=== PATIENT | male | born 1955 | race Caucasian/White ===

== ENCOUNTER → 2016-08-09 | Outpatient (CLI) | payer OTHER | LOC: RAD 13:46 | PROVIDERS: ATTEND Family Medicine | DX: Z12.2 Encounter for screening for malignant neoplasm of respiratory organs (principal); F17.211 Nicotine dependence, cigarettes, in remission | CPT/HCPCS: G0297 ==

== ENCOUNTER → 2017-07-24 | Outpatient (CLI) | payer OTHER ==
--- NOTE | 2017-07-24 12:53 | RADIOLOGY REPORT (SQ) ---
EXAM DESCRIPTION: FOOT LEFT COMPLETE COMPLETED DATE/TIME: 07/24/2017 12:43 pm REASON FOR STUDY: PAIN IN LEFT FOOT M79.672 PAIN IN LEFT FOOT COMPARISON: None. NUMBER OF VIEWS: Three views. TECHNIQUE: AP, lateral and oblique radiographic images acquired of the left foot. LIMITATIONS: None. FINDINGS: MINERALIZATION: Normal. BONES: No acute fracture or dislocation. No worrisome bone lesions. Mild plantar calcaneal spurring . JOINTS: No effusions. SOFT TISSUES: No soft tissue swelling. No foreign body. OTHER: No other significant finding. IMPRESSION: MILD CALCANEAL SPURRING. NO RADIOGRAPHIC EVIDENCE OF ACUTE INJURY. TECHNICAL DOCUMENTATION: JOB ID: [id number] [employer]- All Rights Reserved
== END ==
LOC: OD 12:28
PROVIDERS: ATTEND Nurse Practitioner Acute Care
DX: M79.672 Pain in left foot (principal); M77.32 Calcaneal spur, left foot

== ENCOUNTER → 2017-08-09 | Outpatient (CLI) | payer OTHER ==
--- NOTE | 2017-08-09 15:32 | RADIOLOGY REPORT (SQ) ---
EXAM DESCRIPTION: CT LUNG CANCER SCREENING COMPLETED DATE/TIME: 08/09/2017 10:07 am REASON FOR STUDY: F17.211 NICOTINE DEPENDENCE, CIGARETTES, IN REMISSION F17.211 NICOTINE DEPENDENCE , CIGARETTES, IN REMISSION Has the patient had a Chest CT scan within the past year? Was the patient offered tobacco cessation counseling? Was the patient engaged in shared decision making for this test? Does the patient have signs or symptoms of Lung Cancer? Is the patient a smoker? How many packs per year? How many years since quitting smoking? Patients age: COMPARISON: 2017. TECHNIQUE: Low Dose CT scan performed of the chest without intravenous contrast for purposes of scre ening for lung cancer. Images reviewed with lung, soft tissue and bone windows. Reconstructed coron al and sagittal MPR images reviewed. All images stored on PACS. All CT scanners at this facility use dose modulation, iterative reconstruction, and/or weight based d osing when appropriate to reduce radiation dose to as low as reasonably achievable (ALARA). [facility]: Dose Right [facility]: CareDose [facility]: Dose Right [facility]: Teradose 4D [facility]: [employer] RADIATION DOSE: CT Rad equipment meets quality standard of care and radiation dose reduction techniq ues were employed. CTDIvol: 2.1 mGy. DLP: 81 mGy-cm. mGy. . LIMITATIONS: None FINDINGS: LUNGS AND PLEURA: No masses or nodules. No pleural effusions or calcifications. No pne umothorax. No scarring or interstitial changes. HILAR AND MEDIASTINAL STRUCTURES: No identified masses. No abnormal nodes. HEART AND VASCULAR STRUCTURES: No aortic aneurysm, mild aortic ectasia. No pericardial effusion. N o cardiac devices. CORONARY ARTERY CALCIFICATIONS: Mild to moderate calcifications. UPPER ABDOMEN, THYROID, BONES, OTHER SOFT TISSUES: No significant findings. IMPRESSION: NO SIGNIFICANT FINDING IN THE LUNGS ON NON-CONTRASTED CHEST CT. NO OTHER CLINICALLY SIGNIFICANT/POTENTIALLY CLINICALLY SIGNIFICANT FINDINGS LUNGRADS: LUNGRADS: 1 NEGATIVE. NO NODULES, OR DEFINITELY BENIGN NODULES MODIFIER: NONE RECOMMENDATION: Continue annual screening with LDCT in 12 months. COMMENT: CRITERIA: No lung nodules. Nodules with specific calcifications: Complete, central, popcorn, concentric rings and fat containin g nodules. TECHNICAL DOCUMENTATION: JOB ID: [id number] Quality ID # [id number]: Final reports with documentation of one or more dose reduction techniques (e.g., Au tomated exposure control, adjustment of the mA and/or kV according to patient size, use of iterative reconstruction technique) 2010 [employer]
== END ==
LOC: RAD 12:04
PROVIDERS: ATTEND Family Medicine
DX: Z12.2 Encounter for screening for malignant neoplasm of respiratory organs (principal); F17.211 Nicotine dependence, cigarettes, in remission
CPT/HCPCS: G0297

== ENCOUNTER → 2018-08-09 | Outpatient (CLI) | payer OTHER ==
--- NOTE | 2018-08-10 07:55 | RADIOLOGY REPORT (SQ) ---
EXAM DESCRIPTION: MRI CERVICAL SPINE WITHOUT COMPLETED DATE/TIME: 08/09/2018 9:50 pm REASON FOR STUDY: M50.00 CERVICAL DISC DISORDER WITH MYELOPATHY, UNSPECIFIED CERVICAL REGION COMPARISON: None. TECHNIQUE: Sagittal and Axial imaging includes T1, T2, STIR and gradient echo sequences. LIMITATIONS: None. FINDINGS: ALIGNMENT: Rightward rotational curvature of the cervical spine VERTEBRAE: Intact. BONE MARROW: Normal. No marrow replacement or reactive changes. DISCS: Old anterior fusion at C4-5 with fixation plate and bone graft HARDWARE: As above CORD AND BASE OF BRAIN: Normal in size and signal intensity. SOFT TISSUES: No soft tissue masses. C1-C2: No significant spinal stenosis. C2-C3: No central canal or right foraminal narrowing. Moderate left C2-3 foraminal narrowing from fa cet and uncovertebral hypertrophy. C3-C4: No central or right foraminal narrowing. High-grade left C3-4 foraminal narrowing from facet and uncovertebral hypertrophy. C4-C5: Old anterior discectomy. No central stenosis. Mild right, high-grade left foraminal narrowin g facet and uncovertebral hypertrophy. C5-C6: No central canal or right foraminal narrowing. Mild left foraminal stenosis from facet and un covertebral hypertrophy C6-C7: No central canal or right foraminal narrowing. Mild left foraminal stenosis from facet and un covertebral hypertrophy C7-T1: No central canal or right foraminal narrowing. Moderate left foraminal narrowing from facet a nd uncovertebral hypertrophy UPPER THORACIC: Incompletely imaged. No significant spinal stenosis or exit foraminal stenosis. OTHER: No other significant finding. IMPRESSION: Multilevel left-sided foraminal narrowing TECHNICAL DOCUMENTATION: JOB ID: [id number]- All Rights Reserved Reading location - IP/workstation name: [email or web address]
--- NOTE | 2018-08-10 08:21 | RADIOLOGY REPORT (SQ) ---
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 TECHNIQUE: Sagittal and Axial imaging includes T1, T2, STIR and gradient echo sequences. Coronal T2/ HASTE imaging. LIMITATIONS: None. FINDINGS: VISUALIZED UPPER ABDOMEN: Limited evaluation. No acute or suspicious findings suggested. SEGMENTATION: No transitional anatomy. The lowest well-developed disc space is labeled L5-S1. ALIGNMENT: Anatomic. VERTEBRAE: Intact. BONE MARROW: Normal. No marrow replacement or reactive changes. DISC SIGNAL: Diffuse decreased T2 weighted intervertebral disc signal. Disc space loss of height at T11-12, L2-3 and L5-S1 POSTERIOR ELEMENTS: Generally intact. No pars defect evident. HARDWARE: None in the spine. CORD AND CONUS: Normal in size and signal intensity. Conus at the T12-L1 level. SOFT TISSUES: No aortic aneurysm seen. No bulky retroperitoneal adenopathy or mass. No paraspinal mas s or fluid. T10-11: Moderate bilateral facet hypertrophy is present with borderline central canal narrowing and mild bilateral foraminal narrowing. T11-12: Minimal posterior disc bulging, moderate bilateral facet hypertrophy and. Borderline centra l canal narrowing, mild bilateral foraminal narrowing. T12-L1: Minimal posterior disc bulging, moderate bilateral facet hypertrophy and. No central canal n arrowing, mild bilateral foraminal narrowing. L1-L2: Minimal posterior disc bulging, moderate bilateral facet hypertrophy and. No central canal na rrowing, mild bilateral foraminal narrowing. L2-L3: Mild diffuse posterior disc bulging, moderate bilateral facet hypertrophy and. Borderline rachel tral canal narrowing, mild bilateral foraminal narrowing. L3-L4: Mild diffuse posterior disc bulging, mild bilateral facet and ligament hypertrophy. Borderlin e central canal narrowing. Moderate to high-grade bilateral foraminal narrowing from facet and uncov ertebral hypertrophy. Partial effacement of the fat around the exiting L3 nerve roots left greater t javier right L4-L5: Mild diffuse posterior disc bulging, moderate bilateral facet and ligament hypertrophy. Borde rline central canal narrowing. Moderate bilateral foraminal narrowing with partial effacement of the fat around the exiting L4 nerve roots L5-S1: Mild diffuse posterior disc bulge, moderate bilateral facet and ligament hypertrophy. No cent ral canal narrowing. Mild right, mild to moderate left foraminal narrowing from facet and uncoverteb ral hypertrophy SACRUM: Visualized upper sacrum intact. OTHER: No other significant findings. IMPRESSION: Diffuse degenerative changes as above. TECHNICAL DOCUMENTATION: JOB ID: [id number] [employer]- All Rights Reserved Reading location - IP/workstation name: [email or web address]
== END ==
LOC: RAD 15:56
PROVIDERS: ATTEND Family Medicine
DX: M51.06 Intervertebral disc disorders with myelopathy, lumbar region (principal)
CPT/HCPCS: 72141; 72148

== ENCOUNTER → 2019-08-11 | Outpatient (CLI) | payer OTHER ==
--- NOTE | 2019-08-11 15:24 | RADIOLOGY REPORT (SQ) ---
EXAM DESCRIPTION: MRI CERVICAL SPINE WITHOUT COMPLETED DATE/TIME: 08/11/2019 2:56 pm REASON FOR STUDY: M50.00 CERVICAL DISC DISORDER M51.06 MYELOPATHY LUMBAR REGION M50.00 CERVICAL DIS C DISORDER WITH MYELOPATHY, UNSP CERVICAL M51.06 INTERVERTEBRAL DISC DISORDERS WITH MYELOPATHY, LUMB AR COMPARISON: 08/09/2018 TECHNIQUE: Sagittal and Axial imaging includes T1, T2, STIR and gradient echo sequences. LIMITATIONS: None. FINDINGS: ALIGNMENT: Normal. VERTEBRAE: Intact. BONE MARROW: Normal. No marrow replacement or reactive changes. DISCS: Loss of height and T2 signal C6-7 and C7-T1. HARDWARE: Anterior cervical fusion C4-5. CORD AND BASE OF BRAIN: Normal in size and signal intensity. SOFT TISSUES: No soft tissue masses. C1-C2: Synovitis C1-2. C2-C3: No significant spinal stenosis or exit foraminal stenosis. C3-C4: Asymmetric left disc osteophyte complex with mild narrowing of the left exit foramina. C4-C5: Disc osteophyte complex with mild narrowing of both exit foramina. C5-C6: Disc osteophyte complex with mild narrowing of the right exit foramina. C6-C7: Disc osteophyteNo significant spinal stenosis or exit foraminal stenosis. C7-T1: Disc osteophyte complex with mild narrowing of the left exit foramina. UPPER THORACIC: Incompletely imaged. No significant spinal stenosis or exit foraminal stenosis. OTHER: No other significant finding. IMPRESSION: Surgical changes C4-5. Mild exit foraminal stenosis multiple levels. No critical stenosis. TECHNICAL DOCUMENTATION: JOB ID: [id number] [employer]- All Rights Reserved Reading location - IP/workstation name: [email or web address]
--- NOTE | 2019-08-11 15:29 | RADIOLOGY REPORT (SQ) ---
EXAM DESCRIPTION: MRI LUMBAR SPINE WITHOUT COMPLETED DATE/TIME: 08/11/2019 2:56 pm REASON FOR STUDY: M50.00 CERVICAL DISC DISORDER M51.06 MYELOPATHY LUMBAR REGION M50.00 CERVICAL DIS C DISORDER WITH MYELOPATHY, UNSP CERVICAL M51.06 INTERVERTEBRAL DISC DISORDERS WITH MYELOPATHY, LUMB AR COMPARISON: 08/09/2018 TECHNIQUE: Sagittal and Axial imaging includes T1, T2, STIR and gradient echo sequences. Coronal T2/ HASTE imaging. LIMITATIONS: None FINDINGS: VISUALIZED UPPER ABDOMEN: Limited evaluation. No acute or suspicious findings suggested. SEGMENTATION: No transitional anatomy. The lowest well-developed disc space is labeled L5-S1. ALIGNMENT: Mild degenerative retrolisthesis of L2 on L3 and L3 on L4. VERTEBRAE: Intact. BONE MARROW: Multilevel reactive endplate changes sparing L4-5. DISC SIGNAL: Generalized loss of height and T2 signal sparing L4-5. POSTERIOR ELEMENTS: Generally intact. No pars defect evident. HARDWARE: None in the spine. CORD AND CONUS: Normal in size and signal intensity. Conus at the appropriate level. SOFT TISSUES: No aortic aneurysm seen. No bulky retroperitoneal adenopathy or mass. No paraspinal mas s or fluid. L1-L2: Disc bulge with mild narrowing of the exit foramina. L2-L3: Disc bulge with mild narrowing of the exit foramina. L3-L4: Generalize broad-based disc bulge. Mild posterior element overgrowth. Marked narrowing of th e exit foramina. L4-L5: Generalized disc bulge. Facet hypertrophy. Marked narrowing of the exit foramina. L5-S1: Disc osteophyte complex with mild narrowing of the exit foramina. LOWER THORACIC: Incompletely imaged. No stenosis seen. SACRUM: Visualized upper sacrum intact. OTHER: No other significant findings. IMPRESSION: Multilevel spondylosis predominantly exit foraminal narrowing. Most prominent exit fora dora narrowing is L3-4 and L4-5. Mild progression. TECHNICAL DOCUMENTATION: JOB ID: [id number]- All Rights Reserved Reading location - IP/workstation name: [email or web address]
== END ==
LOC: RAD 13:44
PROVIDERS: ATTEND Family Medicine
DX: M51.06 Intervertebral disc disorders with myelopathy, lumbar region (principal); M50.00 Cervical disc disorder with myelopathy, unspecified cervical region
CPT/HCPCS: 72141; 72148

== ENCOUNTER 2019-09-26 12:39 | Emergency (ER) | payer OTHER ==
[2019-09-26 12:45] VITALS: BP 176/102
--- NOTE | 2019-09-26 12:54 | ER Document Report ---
ED Medical Screen (RME) - General Chief Complaint: Fall Injury Stated Complaint: FALL/HEAD INJURY Time Seen by Provider: 09/26/19 12:48 Primary Care Provider: STACY CANTU MD [Primary Care Provider] - Follow up as needed Mode of Arrival: Wheelchair Information source: Patient Notes: 64-year-old male presented to ED for a fall after he tripped on a hole in the concrete. He has a laceration to the left eyebrow with a head injury, he has laceration to the third fourth and fifth finger to the left. With injuries and pain to the hand and fingers. He also has abrasions with injuries and bruising and swelling to both knees. He is on aspirin for A. fib. Patient will get CT of the head x-ray of the left fingers and x-ray of both knees. Bleeding is under control to all injuries at this time. I have greeted and performed a rapid initial assessment of this patient. A comprehensive ED assessment and evaluation of the patient, analysis of test results and completion of medical decision making process will be conducted by an additional ED providers. TRAVEL OUTSIDE OF THE [place] IN LAST 30 DAYS: No - Related Data Allergies/Adverse Reactions: No Known Allergies Allergy (Verified 09/26/19 12:46) Past Medical History - Past Medical History Cardiac Medical History: Denies: Hx Coronary Artery Disease, Hx Heart Attack, Hx Hypertension Pulmonary Medical History: Reports: Hx Pneumonia - YEARS AGO Denies: Hx Asthma, Hx Bronchitis, Hx COPD Neurological Medical History: Denies: Hx Cerebrovascular Accident, Hx Seizures GI Medical History: Denies: Hx Hepatitis, Hx Hiatal Hernia, Hx Ulcer Musculoskeltal Medical History: Reports Hx Arthritis - GENERALIZED Infectious Medical History: Denies: Hx Hepatitis Past Surgical History: Denies: Hx Open Heart Surgery, Hx Pacemaker - Immunizations Hx Diphtheria, Pertussis, Tetanus Vaccination: Yes Physical Exam - Vital signs Vitals: Temp Pulse Resp BP Pulse Ox 98.1 F 78 16 176/102 H 95 09/26/19 12:44 09/26/19 12:44 09/26/19 12:44 09/26/19 12:44 09/26/19 12:44 Course - Vital Signs Vital signs: Temp Pulse Resp BP Pulse Ox 98.1 F 78 16 176/102 H 95 09/26/19 12:44 09/26/19 12:44 09/26/19 12:44 09/26/19 12:44 09/26/19 12:44 Doctor's Discharge - Discharge Referrals: STACY CANTU MD [Primary Care Provider] - Follow up as needed
--- NOTE | 2019-09-26 13:25 | RADIOLOGY REPORT (SQ) ---
EXAM DESCRIPTION: CT HEAD WITHOUT COMPLETED DATE/TIME: 09/26/2019 1:04 pm REASON FOR STUDY: Fall head injury COMPARISON: None. TECHNIQUE: Axial images acquired through the brain without intravenous contrast. Images reviewed wi th bone, brain and subdural windows. Additional sagittal and coronal reconstructions were generated. Images stored on PACS. All CT scanners at this facility use dose modulation, iterative reconstruction, and/or weight based d osing when appropriate to reduce radiation dose to as low as reasonably achievable (ALARA). [facility]: Dose Right [facility]: CareDose [facility]: Dose Right [facility]: Teradose 4D [facility]: [email or web address] RADIATION DOSE: CT Rad equipment meets quality standard of care and radiation dose reduction techniq ues were employed. CTDIvol: 53.2 mGy. DLP: 1044 mGy-cm. mGy. LIMITATIONS: None. FINDINGS: VENTRICLES: Normal size and contour. CEREBRUM: No masses. No hemorrhage. No midline shift. No evidence for acute infarction. Normal gra y/white matter differentiation. No areas of low density in the white matter. CEREBELLUM: No masses. No hemorrhage. No alteration of density. No evidence for acute infarction. EXTRAAXIAL SPACES: No fluid collections. No masses. ORBITS AND GLOBE: No intra- or extraconal masses. Normal contour of globe without masses. CALVARIUM: No fracture. PARANASAL SINUSES: No fluid or mucosal thickening. SOFT TISSUES: No mass or hematoma. OTHER: No other significant finding. IMPRESSION: NORMAL BRAIN CT WITHOUT CONTRAST. EVIDENCE OF ACUTE STROKE: NO. COMMENT: Quality ID # [id number]: Final reports with documentation of one or more dose reduction techniques (e.g., Automated exposure control, adjustment of the mA and/or kV according to patient size, use of iterative reconstruction technique) TECHNICAL DOCUMENTATION: JOB ID: [id number] 2010 [employer]- All Rights Reserved Reading location - IP/workstation name: [email or web address]
[2019-09-26] MEDS ORDERED: LIDOCAINE 1% INJ-PF (10 MG/ML) 30 ML SDV INJ ONE (13:55)
--- NOTE | 2019-09-26 14:01 | RADIOLOGY REPORT (SQ) ---
EXAM DESCRIPTION: HAND LEFT 3 VIEWS COMPLETED DATE/TIME: 09/26/2019 12:16 pm REASON FOR STUDY: 3rd 4th and 5th [id number] finger and injury COMPARISON: None. EXAM PARAMETERS: NUMBER OF VIEWS: Three views. TECHNIQUE: AP, lateral and oblique radiographic images acquired of the left hand. LIMITATIONS: None. FINDINGS: MINERALIZATION: Normal. BONES: There is a subtle cortical irregularity at the distal third digit metacarpal consistent with a nondisplaced fracture. No angulation or displacement. There is mild anterior subluxation at the m etacarpophalangeal joint. JOINTS: No effusions. SOFT TISSUES: There is soft tissue swelling at the dorsal third digit metacarpophalangeal joint. No foreign body. OTHER: No other significant finding. IMPRESSION: Acute nondisplaced fracture distal 3rd digit metacarpal. Possible mild dislocation at t he third digit metacarpophalageal joint. TECHNICAL DOCUMENTATION: JOB ID: [id number] 2010 [employer]- All Rights Reserved Reading location - IP/workstation name: [email or web address]
--- NOTE | 2019-09-26 14:03 | RADIOLOGY REPORT (SQ) ---
EXAM DESCRIPTION: KNEE LEFT 4 VIEW COMPLETED DATE/TIME: 09/26/2019 12:16 pm REASON FOR STUDY: pain fall injury COMPARISON: None. NUMBER OF VIEWS: Four views. TECHNIQUE: AP, lateral, and both oblique radiographic images acquired of the left knee. LIMITATIONS: None. FINDINGS: MINERALIZATION: Normal. BONES: No acute fracture or dislocation. No worrisome bone lesions. JOINT: No effusion. SOFT TISSUES: No soft tissue swelling. No radio-opaque foreign body. OTHER: No other significant finding. IMPRESSION: NEGATIVE STUDY OF THE LEFT KNEE. NO RADIOGRAPHIC EVIDENCE OF ACUTE INJURY. TECHNICAL DOCUMENTATION: JOB ID: [id number] 2010 [employer]- All Rights Reserved Reading location - IP/workstation name: [email or web address]
--- NOTE | 2019-09-26 14:03 | RADIOLOGY REPORT (SQ) ---
EXAM DESCRIPTION: KNEE RIGHT 4 VIEWS COMPLETED DATE/TIME: 09/26/2019 12:16 pm REASON FOR STUDY: pain fall injury COMPARISON: None. NUMBER OF VIEWS: Four views. TECHNIQUE: AP, lateral, and both oblique radiographic images acquired of the right knee. LIMITATIONS: None. FINDINGS: MINERALIZATION: Normal. BONES: No acute fracture or dislocation. No worrisome bone lesions. JOINT: No effusion. SOFT TISSUES: No soft tissue swelling. No radio-opaque foreign body. OTHER: No other significant finding. IMPRESSION: NEGATIVE STUDY OF THE RIGHT KNEE. NO RADIOGRAPHIC EVIDENCE OF ACUTE INJURY. TECHNICAL DOCUMENTATION: JOB ID: [id number] 2010 [employer]- All Rights Reserved Reading location - IP/workstation name: [email or web address]
--- NOTE | 2019-09-26 14:14 | ER Document Report ---
ED General - General Mode of Arrival: Wheelchair TRAVEL OUTSIDE OF THE [place] IN LAST 30 DAYS: No - Related Data Home Medications: Mobic, Neurontin, aspirin <MELISSA TIMMONS - Last Filed: 09/26/19 15:05> <NAIMA HARDIN - Last Filed: 09/27/19 07:41> - General Chief Complaint: Fall Injury Stated Complaint: FALL/HEAD INJURY Time Seen by Provider: 09/26/19 12:48 Primary Care Provider: STACY CANTU MD [Primary Care Provider] - Follow up as needed - HPI Notes: Patient is a 64-year-old male who presents emergency department for evaluation. [place] the park when he had a mechanical fall. He tripped, striking his head, his left hand, and bilateral knees. His last tetanus shot was a year ago. He denies losing consciousness. He has no neck or back pain. He denies any difficulty seeing, speaking, swallowing. Moving his arms and legs without difficulty. He complains of some minor head pain, but states is minimal. (MELISSA TIMMONS) - Related Data Allergies/Adverse Reactions: No Known Allergies Allergy (Verified 09/26/19 12:46) Past Medical History - General Information source: Patient - Social History Smoking Status: Former Smoker Patient has suicidal ideation: No Patient has homicidal ideation: No - Past Medical History Cardiac Medical History: Denies: Hx Coronary Artery Disease, Hx Heart Attack, Hx Hypertension Pulmonary Medical History: Reports: Hx Pneumonia - YEARS AGO Denies: Hx Asthma, Hx Bronchitis, Hx COPD Neurological Medical History: Denies: Hx Cerebrovascular Accident, Hx Seizures GI Medical History: Denies: Hx Hepatitis, Hx Hiatal Hernia, Hx Ulcer Musculoskeletal Medical History: Reports Hx Arthritis - GENERALIZED Infectious Medical History: Denies: Hx Hepatitis Past Surgical History: Denies: Hx Open Heart Surgery, Hx Pacemaker - Immunizations Hx Diphtheria, Pertussis, Tetanus Vaccination: Yes <MELISSA TIMMONS - Last Filed: 09/26/19 15:05> - Social History Family History: Reviewed & Not Pertinent <NAIMA HARDIN - Last Filed: 09/27/19 07:41> Review of Systems - Review of Systems Musculoskeletal: See HPI Skin: See HPI -: Yes All other systems reviewed and negative <MELISSA TIMMONS - Last Filed: 09/26/19 15:05> Physical Exam <MELISSA TIMMONS - Last Filed: 09/26/19 15:05> - Vital signs Vitals: Temp Pulse Resp BP Pulse Ox 98.1 F 78 16 176/102 H 95 09/26/19 12:44 09/26/19 12:44 09/26/19 12:44 09/26/19 12:44 09/26/19 12:44 - Notes Notes: Vital signs reviewed, please refer to chart. Head is normocephalic. He has a 4 cm jagged appearing laceration overlying the left brow. Pupils equal round, reactive to light. Examination of the spine is no midline tenderness or step- off. No paraspinal musculature tenderness is appreciated. Heart is regular rate and rhythm. Lungs are clear to auscultation bilaterally. Abdomen is soft, nontender, normoactive bowel sounds throughout. Extremities without cyanosis, clubbing. Posterior calves are nontender. Peripheral pulses are equal. Skin is warm and dry. He has a superficial laceration noted overlying the dorsal fourth finger, distal interphalangeal joint. He also has another superficial jagged laceration noted on the ulnar aspect of the fifth metacarpophalangeal joint. Superficial abrasions noted to bilateral knees, right greater than left. He has full range of motion of the left shoulder, elbow, wrist, fingers, thumb. Se nsation is intact. Patient is awake, alert, oriented x3. Cranial nerves II - XII are grossly intact without focal neurological deficits. Strength is plus 5 out of 5 bilateral upper and lower extremities. Sensation is intact. Reflexes symmetrical. Intact [id number], rapid alternating movements, [id number]. (MELISSA TIMMONS) Course - Diagnostic Test Radiology reviewed: Image reviewed, Reports reviewed <MELISSA TIMMONS - Last Filed: 09/26/19 15:05> - Re-evaluation Re-evalutation: 09/26/19 14:09 Patient presents emergency department for evaluation. He does have a laceration that will require suturing on his face, but I do not see any other lacerations that will require anything other than cleansing. His tetanus is up-to-date. 09/26/19 15:05 , Back in to the room to reevaluate the patient after he had his x-rays read by radiology. They reported a distal third meta carpal fracture. I went back in and evaluated him, he has absolutely no tenderness over any part of the metacarpal. He is full range of motion without pain. We discussed the finding of a fracture per radiology, he states he does not believe that he has any fractures at this time. Decision was made to proceed without any sort of splint placement. The patient is amenable to this. His wound was sutured by Naima hardin, nurse practitioner. He tolerated this well. He was given wound care instructions. He is to return here or to his primary care provider's office to have his sutures removed in 5 to 7 days. He is given instructions on signs of infection. He is otherwise keep his wound clean with soap and water. Return to the ED with worsening or new concerning symptoms of any sort. (MELISSA TIMMONS) - Vital Signs Vital signs: Temp Pulse Resp BP Pulse Ox 98.1 F 78 16 176/102 H 95 09/26/19 12:44 09/26/19 12:44 09/26/19 12:44 09/26/19 12:44 09/26/19 12:44 - Diagnostic Test Radiology results interpreted by me: 09/26/19 14:14 Hand X-Ray 09/26/19 12:50 IMPRESSION: Acute nondisplaced fracture distal 3rd digit metacarpal. Possible mild dislocation at the third digit metacarpophalageal joint. Head CT 09/26/19 12:50 IMPRESSION: NORMAL BRAIN CT WITHOUT CONTRAST. EVIDENCE OF ACUTE STROKE: NO. Knee X-Ray 09/26/19 12:52 IMPRESSION: NEGATIVE STUDY OF THE LEFT KNEE. NO RADIOGRAPHIC EVIDENCE OF ACUTE INJURY. Knee X-Ray 09/26/19 12:52 IMPRESSION: NEGATIVE STUDY OF THE RIGHT KNEE. NO RADIOGRAPHIC EVIDENCE OF ACUTE INJURY. Fracture (MELISSA TIMMONS) Procedures - Laceration/Wound Repair Left eyebrow Wound length (cm): 4 Wound's Depth, Shape: Superficial, Irregular Laceration pre-procedure: Sterile PPE donned, Sterile drapes applied, Shur-Clens applied Anesthetic type: 1% Lidocaine Volume Anesthetic (mLs): 6 Wound explored: Clean, No foreign body removed Irrigated w/ Saline (mLs): 50 Wound Debrided: Minimal Wound Repaired With: Sutures Suture Size/Type: 5:0, Nylon Number of Sutures: 6 Layer Closure?: No Post-procedure NV exam normal: Yes Complications: No Adult Head Front/Back picture: 1 - Laceration <PLACE,NAIMA M - Last Filed: 09/27/19 07:41> Discharge <FRIESMELISSA M - Last Filed: 09/26/19 15:05> <PLACE,NAIMA M - Last Filed: 09/27/19 07:41> - Discharge Clinical Impression: Facial laceration Qualifiers: Encounter type: initial encounter Qualified Code(s): S01.81XA - Laceration without foreign body of other part of head, initial encounter Head injury Qualifiers: Encounter type: initial encounter Qualified Code(s): S09.90XA - Unspecified injury of head, initial encounter Abrasion of left hand Qualifiers: Encounter type: initial encounter Qualified Code(s): S60.512A - Abrasion of left hand, initial encounter Contusion, knee Qualifiers: Encounter type: initial encounter Laterality: unspecified laterality Qualified Code(s): S80.00XA - Contusion of unspecified knee, initial encounter Knee abrasion Qualifiers: Encounter type: initial encounter Laterality: unspecified laterality Qualified Code(s): S80.219A - Abrasion, unspecified knee, initial encounter Condition: Stable Disposition: HOME, SELF-CARE Instructions: Antibiotic Ointment Protection ([facility]), Head Injury Precautions ([facility]), Laceration Care ([facility]), Soap Cleansing ([facility]) Additional Instructions: Keep wounds clean with soap and water. Have sutures removed in 5 to 7 days. Avoid submerging in water as discussed. If you develop fever, increased redness, drainage, vomiting, or any other new or concerning symptoms, please re turn immediately to the emergency department for evaluation. Referrals: STACY CANTU MD [Primary Care Provider] - Follow up as needed
== END 2019-09-26 15:27 | disposition home or self-care (01) ==
LOC: ER 12:39
DX: S01.112A Laceration without foreign body of left eyelid and periocular area, initial encounter (principal); S62.303A Unspecified fracture of third metacarpal bone, left hand, initial encounter for closed fracture; S61.218A Laceration without foreign body of other finger without damage to nail, initial encounter; S61.419A Laceration without foreign body of unspecified hand, initial encounter; S80.211A Abrasion, right knee, initial encounter; S80.212A Abrasion, left knee, initial encounter; S80.00XA Contusion of unspecified knee, initial encounter; R51 Headache; W01.0XXA Fall on same level from slipping, tripping and stumbling without subsequent striking against object, initial encounter; Y93.01 Activity, walking, marching and hiking; Y92.830 Public park as the place of occurrence of the external cause; Z87.891 Personal history of nicotine dependence
CPT/HCPCS: 99284; 73130; 73564 ×2; 70450; 12013; J3490

== ENCOUNTER → 2020-03-13 | Outpatient (CLI) | payer OTHER ==
--- NOTE | 2020-03-14 15:53 | RADIOLOGY REPORT (SQ) ---
EXAM DESCRIPTION: CT LUNG CANCER SCREENING IMAGES COMPLETED DATE/TIME: 03/13/2020 1:53 pm REASON FOR STUDY: NICOTINE DEPENDENCE, CIGARETTES, IN REMISSION F17.211 NICOTINE DEPENDENCE, CIGARE TTES, IN REMISSION Has the patient had a Chest CT scan within the past year? N Was the patient offered tobacco cessation counseling? N Was the patient engaged in shared decision making for this test? Y Does the patient have signs or symptoms of Lung Cancer? N Is the patient a smoker? N How many pack years? 45Y How many years since quitting smoking? 3Y Patients age: 63 COMPARISON: 02/08/2019 TECHNIQUE: Low Dose CT scan performed of the chest without intravenous contrast for purposes of scre ening for lung cancer. Images reviewed with lung, soft tissue and bone windows. Reconstructed coron al and sagittal MPR images reviewed. All images stored on PACS. All CT scanners at this facility use dose modulation, iterative reconstruction, and/or weight based d osing when appropriate to reduce radiation dose to as low as reasonably achievable (ALARA). [facility]: Dose Right [facility]: CareDose [facility]: Dose Right [facility]: Teradose 4D [facility]: [employer] Systems RADIATION DOSE: mGy. . LIMITATIONS: None FINDINGS: LUNGS AND PLEURA: No masses or nodules. No pleural effusions or calcifications. No pne umothorax. HILAR AND MEDIASTINAL STRUCTURES: No identified masses. No abnormal nodes. HEART AND VASCULAR STRUCTURES: Cardiomegaly. No aortic aneurysm. No pericardial effusion. No card iac devices. CORONARY ARTERY CALCIFICATIONS: Mild to moderate calcifications. UPPER ABDOMEN, THYROID, BONES, OTHER SOFT TISSUES: No significant findings. IMPRESSION: NO EVIDENCE OF LUNG CANCER. OTHER FINDINGS ABOVE. LUNGRADS: LUNGRADS: 1 NEGATIVE. NO NODULES, OR DEFINITELY BENIGN NODULES MODIFIER: NONE RECOMMENDATION: Continue annual screening with LDCT in 12 months. COMMENT: CRITERIA: No lung nodules. Nodules with specific calcifications: Complete, central, popcorn, concentric rings and fat containin g nodules. TECHNICAL DOCUMENTATION: JOB ID: [id number] Quality ID # [id number]: Final reports with documentation of one or more dose reduction techniques (e.g., Au tomated exposure control, adjustment of the mA and/or kV according to patient size, use of iterative reconstruction technique) 2010 [facility] Emergency Department Radiology Reading location - IP/workstation name: [email or web address]
== END ==
LOC: RAD 13:20
PROVIDERS: ATTEND Family Medicine
DX: F17.211 Nicotine dependence, cigarettes, in remission (principal)
CPT/HCPCS: G0297

== ENCOUNTER → 2020-06-24 | Outpatient (CLI) | payer MEDICARE, OTHER ==
[2020-06-24 08:36] LABS: ALBUMIN 4.2 g/dL (3.5-5.0); ALKALINE PHOSPHATASE 53 U/L (38-126); ANION GAP 8 (5-19); ASPARTATE AMINO TRANSFERASE 41 U/L (17-59); BILIRUBIN,TOTAL 0.6 mg/dL (0.2-1.3); BLOOD UREA NITROGEN 7 mg/dL (7-20); CALCIUM 9.6 mg/dL (8.4-10.2); CARBON DIOXIDE 29 mmol/L (22-30); CHLORIDE 102 mmol/L (98-107); CHOLESTEROL 180.58 mg/dL (0-200); GLUCOSE 92 mg/dL (75-110); POTASSIUM 4.8 mmol/L (3.6-5.0); TOTAL PROTEIN 7.1 g/dL (6.3-8.2); TRIGLYCERIDES 125 mg/dL (<150)
[2020-06-24 08:47] LABS: DIRECT LDL 90 mg/dL (<100)
== END ==
LOC: OD 07:32
PROVIDERS: ATTEND Family Medicine
DX: I10 Essential (primary) hypertension (principal); E78.5 Hyperlipidemia, unspecified
CPT/HCPCS: 36415; 80053; 80061